=== PATIENT | male | born 1945 | race Caucasian/White ===

== ENCOUNTER 2017-05-03 22:48 | Inpatient (IN) ==
[2017-05-04] MEDS: Furosemide 40 MG TABLET PO SCH ×4 (06:51→21:09)
[2017-05-04] MEDS: Aspirin 325 MG TABLET PO SCH ×2 (06:54→21:06)
--- NOTE | 2017-05-04 07:43 | Internal Med History&Physical ---
Date of Encounter: 05/08/17 Time of Encounter: 07:38 Assessment and Plan (1) COPD exacerbation Current visit: Yes Status: Acute 71/male history of multiple comorbid conditions. Known to have COPD. Admitted with pneumonia in association with the COPD exacerbation. This is a transfer case from [facility] to this hospital. Plan: Admit as inpatient: Patient needs intravenous antibiotics/steroids/close monitoring of the respiratory status/worsening may need ICU transfer. Intravenous antibiotics: Ceftriaxone/azithromycin. Intravenous corticosteroids: Solu-Medrol every 8 hours. Bronchodilators: DuoNeb every 4 hours when necessary. Close monitoring of the respiratory status. We will repeat labs today and tomorrow morning. In view of the multiple comorbid conditions patient needs to be monitored very closely. I have examined this patient in room #23 in the unit 3 [address]. I have explained plan to the patient at length and he verbalized understanding. (2) Diabetes mellitus Current visit: Yes Status: Acute Patient is known to have a type 2 diabetes mellitus. We will start him on subcutaneous insulin order set protocol. We will follow the recommendations from the order Set. Qualifiers: Diabetes mellitus type: type 2 Diabetes mellitus complication status: with unspecified complications Diabetes mellitus termite exterminator insulin use: unspecified alf insulin use status Qualified Code(s): E11.8 - Type 2 diabetes mellitus with unspecified complications (3) Hypertension Current visit: Yes Status: Acute Resume home antihypertensives. Qualifiers: Hypertension type: essential hypertension Qualified Code(s): I10 - Essential (primary) hypertension (4) Morbid obesity Current visit: Yes Status: Acute This patient definitely needs evaluation from bariatric surgery as outpatient (5) DVT prophylaxis Current visit: Yes Status: Acute SCD Medical decision-making: This patient has a moderate to severe risk of worsening in spite of being on appropriate treatment due to the underlying complex medical conditions. Internal Medicine - H&P: HPI Chief complaint: Shortness of breath Admitted From: Hospital to Hospital Transfer Plans for Post Hospital Care: Home History of present illness: PCP: Rosa Camacho Brief past medical history: Diabetes, hypertension, dyslipidemia, chronic kidney disease, morbid obesity, COPD History of present medical illness: Patient was getting upper respiratory symptoms for past 7-10 days. Patient has ongoing cough, shortness of breath and sputum production. Patient noted that there was a change in the color of the sputum. Patient initially tried ljcv-xye-vtcdokt medications from [facility]. Ngbt-fkj-enoiznd medications did not help him for initial 3-4 days and that is why he decided to go to his primary care doctor. He did not get an appointment for his primary care doctor. Patient went to urgent care for further evaluation at [facility]. Urgent care did some basic workup and came to the conclusion that patient has pneumonia. Urgent care provider recommended patient to go to the emergency room at [facility]. At [facility] and was diagnosed that patient has pneumonia. Patient was advised hospitalization at the [facility] but patient refused and decided to come to this hospital for further evaluation. patient denies chest pain, nausea, vomiting, abdominal pain, nausea or dizziness. Reason for transfer: Pneumonia in a patient with multiple comorbid conditions Family history: Noncontributory Of note: Patient claims that he came here last night and he did not get his medication and nobody see him. Past Med Surg Social Fam HX - Past Medical History Medical history: asthma, COPD, diabetes, hypertension, kidney stones, renal disease Psychiatric history: no psych history - Past Surgical History Surgical History: no surgical history - Social History Smoking Status: Never smoker Smokeless Tobacco Status: No Alcohol use: rarely Drug use: none - Family History Father Living Status: Cause of : heart attack Mother Living Status: Hx Family Respiratory Disorders: Yes (COPD) Brother Living Status: Still Living Hx Family Respiratory Disorders: Yes (COPD) Internal Medicine - H&P: Meds Aspirin 325 mg PO HS 05/04/17 [History] Clopidogrel [Plavix] 75 mg PO DAILY 05/04/17 [History] Docusate Sodium [Dok] 100 mg PO DAILY 05/04/17 [History] Duloxetine HCl [Cymbalta] 60 mg PO DAILY 05/04/17 [History] Furosemide [Lasix] 40 mg PO BID 05/04/17 [History] Glipizide/Metformin HCl [Glipizide-Metformin 5-500 mg] 1 tab PO DAILY 05/04/17 [ History] Metoprolol Tartrate [Lopressor] 25 mg PO BID 05/04/17 [History] diazePAM [Valium] 5 mg PO BID 05/04/17 [History] 3 Allergy/AdvReac Type Severity Reaction Status Date / Time No Known Allergies Allergy Unverified 09/30/15 10:01 All Systems PM: A 10-system review of systems was performed and is negative for pertinent findings except as documented above in the HPI. - Constitutional Constitutional: no chills, no fever(s), no night sweats - EENT Eyes: no change in vision, no discharge, no pain, no photophobia Ears: no ear discharge, no ear pain, no tinnitus Nose, mouth and throat: no dysphagia, no nasal discharge, no neck pain, no sore throat - Cardiovascular Cardiovascular ROS IM: no chest pain, no diaphoresis, no dyspnea, no lightheadedness, no palpitations, no syncope - Respiratory Respiratory: cough, dyspnea, wheezing, excessive phlegm production - Gastrointestinal Gastrointestinal: no abdominal pain, no diarrhea, no hematemesis, no hematochezia, no melena, no nausea, no vomiting - Musculoskeletal Musculoskeletal ROS IM: no numbness, no tingling - Integumentary Integumentary IM: no rash, no unusual bruising - Neurological Neurological ROS: no confusion, no convulsions, no focal weakness, no numbness, no tingling, no tremor(s) - Hematologic/Lymphatic Hematologic/Lymphatic: no easy bruising - Constitutional Vitals: Temp Pulse Resp BP Pulse Ox 98.3 F 97 16 124/82 92 05/04/17 06:52 05/04/17 06:52 05/04/17 06:52 05/04/17 06:52 05/04/17 06:52 General appearance: Present: A&O X 3, pleasant, no acute distress, answers questions appropriately - Head Head exam: Present: atraumatic, normocephalic - Eye Eye exam: Present: PERRL, conjuntiva pink, sclera anicteric Pupils: Present: PERRL - Neck Neck exam general surgery: Present: supple, trachea midline. Absent: lymphadenopathy - Respiratory Respiratory exam: Present: accessory muscle use, CTAB, rhonchi, wheezes. Absent : rales - Cardiovascular Cardiovascular exam: Present: RRR, +S1, +S2. Absent: diastolic murmur, gallop, rubs, systolic murmur - GI/Abdominal GI/Abdominal exam: Present: normal bowel sounds, soft, no peritoneal signs. Absent: distended, tenderness - Extremities Exam Extremities exam: Present: warm, radial pulses palpable and symmetrical. Absent : calf tenderness, cyanotic, pedal edema - Neurological Exam Neurological exam: Present: CN II-XII intact, oriented X3, no focal deficits. Absent: pronater drift, facial droop, speech deficit - Skin Skin exam: Present: dry, intact Internal Med - H&P Results - Labs CBC & Chem 7: 05/08/17 01:13 05/08/17 01:13
[2017-05-04] MEDS: diazePAM 5 MG TABLET PO SCH ×2 (08:54→21:09)
[2017-05-04] MEDS: Insulin LISPRO 300 UNITS/3 ML VIAL SQ SCH ×3 (08:54→16:30)
[2017-05-04] MEDS: Azithromycin 500 MG in D5% in Water 250 ML IVPB SCH (08:55)
[2017-05-04 09:32] LABS: Basophils # 0.1 K/mcL (0.0-0.2); Basophils % 0.4 %; Eosinophils # 0.1 K/mcL (0.0-0.6); Eosinophils % 0.6 %; Hematocrit 41.2 % (37.5-50.1); Hemoglobin 13.4 g/dL (12.9-16.9); Immature Granulocytes % 0.9 % (0-4); Lymphocytes # 1.4 K/mcL (0.6-4.6); Lymphocytes % 8.8 %; Mean Corpuscular HGB Conc 32.5 g/dL (31.6-35.5); Mean Corpuscular Hemoglobin 28.5 pg (28.0-33.3); Mean Corpuscular Volume 87.5 fL (83.0-100.0); Monocytes # 1.5 K/mcL (0.0-1.3); Monocytes % 9.2 %; Neutrophils # 12.7 K/mcL (1.6-8.9); Platelet Count 188 K/mcL (140-400); Red Blood Count 4.71 M/mcL (4.19-5.50); Red Cell Distribution Width 12.9 % (11.5-14.5); Segmented Neutrophils % 80.1 %
[2017-05-04 10:05] LABS: Alanine Aminotransferase 9 Units/L (7-52); Alkaline Phosphatase 63 Units/L (34-104); Aspartate Amino Transferase 17 Units/L (13-39); BUN/Creatinine Ratio 11 (6-26); Bilirubin,Total 0.6 mg/dL (0.3-1.0); Blood Urea Nitrogen 15 mg/dL (8-23); Calcium 8.2 mg/dL (8.6-10.3); Carbon Dioxide 23 mEq/L (23-29); Chloride 99 mEq/L (98-107); Globulin 3.1 g/dL (2.4-3.5); Glucose 432 mg/dL (70-105); Osmolality,Calculated 291 (280-300); Potassium 3.3 mEq/L (3.5-5.1); Sodium 131 mEq/L (136-145); Total Protein 6.1 g/dL (6.4-8.9); eGFR For African Americans > 60 (> 60); eGFR For Non-African Americans 53 (> 60)
[2017-05-04] MEDS: cefTRIAXone 1,000 MG in Water for inj. (sterile) 20 ML 10 ML IVPB SCH (10:50)
[2017-05-04] MEDS: Ciprofloxacin OPTH Soln 2.5 ML BOTTLE RIGHT EYE SCH ×2 (12:14→18:12)
[2017-05-04] MEDS: Ciprofloxacin OPTH Soln 2.5 ML BOTTLE LEFT EYE SCH ×2 (12:14→18:12)
[2017-05-04] MEDS: Acetaminophen 325 MG TABLET PO PRN (21:08)
[2017-05-05] MEDS: Ciprofloxacin OPTH Soln 2.5 ML BOTTLE RIGHT EYE SCH ×4 (00:31→17:58)
[2017-05-05] MEDS: Ciprofloxacin OPTH Soln 2.5 ML BOTTLE LEFT EYE SCH ×4 (00:31→17:58)
[2017-05-05 05:14] LABS: BUN/Creatinine Ratio 12 (6-26); Blood Urea Nitrogen 15 mg/dL (8-23); Calcium 8.3 mg/dL (8.6-10.3); Carbon Dioxide 27 mEq/L (23-29); Chloride 97 mEq/L (98-107); Chol/HDL Ratio 5.2 (0-4.9); Cholesterol 99 mg/dL (< 200); Glucose 411 mg/dL (70-105); HDL Cholesterol 19 mg/dL (40-59); LDL Cholesterol,Calculated 52 mg/dL (0-99); Magnesium 1.7 mg/dL (1.6-2.6); Osmolality,Calculated 294 (280-300); Phosphorous 2.5 mg/dL (2.7-4.5); Potassium 3.1 mEq/L (3.5-5.1); Sodium 133 mEq/L (136-145); Triglycerides 138 mg/dL (< 150); eGFR For African Americans > 60 (> 60); eGFR For Non-African Americans 57 (> 60)
[2017-05-05 06:00] LABS: Basophils # 0.1 K/mcL (0.0-0.2); Basophils % 0.5 %; Eosinophils # 0.3 K/mcL (0.0-0.6); Eosinophils % 1.9 %; Hematocrit 41.9 % (37.5-50.1); Hemoglobin 13.4 g/dL (12.9-16.9); Immature Granulocytes % 1.6 % (0-4); Lymphocytes # 1.8 K/mcL (0.6-4.6); Lymphocytes % 12.7 %; Mean Corpuscular Volume 87.7 fL (83.0-100.0); Mean Platelet Volume 12.2 fL (9.4-12.4); Monocytes # 1.2 K/mcL (0.0-1.3); Monocytes % 8.4 %; Neutrophils # 10.6 K/mcL (1.6-8.9); Platelet Count 175 K/mcL (140-400); Red Blood Count 4.78 M/mcL (4.19-5.50); Segmented Neutrophils % 74.9 %
[2017-05-05] MEDS: Insulin LISPRO 300 UNITS/3 ML VIAL SQ SCH ×4 (08:29→22:32)
[2017-05-05] MEDS: cefTRIAXone 1,000 MG in Water for inj. (sterile) 20 ML 10 ML IVPB SCH (08:30)
[2017-05-05] MEDS: Furosemide 40 MG TABLET PO SCH ×3 (08:30→21:55)
[2017-05-05] MEDS: diazePAM 5 MG TABLET PO SCH ×2 (08:31→21:55)
[2017-05-05] MEDS: Azithromycin 500 MG in D5% in Water 250 ML IVPB SCH (08:32)
--- NOTE | 2017-05-05 15:15 | Internal Med Progress Note ---
Date of Encounter: 05/08/17 Time of Encounter: 15:13 - Assessment and plan (1) COPD exacerbation Current Visit: Yes Status: Acute Assessment and plan: COPD exacerbation: Antibiotics: Day 2 Steroids: Day 2 Bronchodilators Patient is clinically improving. We will continue the same management for now. We will recheck respiratory status tomorrow. (2) Diabetes mellitus Current Visit: Yes Status: Acute Assessment and plan: Patient's blood sugar is within acceptable range. We will continue to monitor blood sugar Qualifiers: Diabetes mellitus type: type 2 Diabetes mellitus complication status: with unspecified complications Diabetes mellitus exterminator termite insulin use: unspecified exterminator termite insulin use status Qualified Code(s): E11.8 - Type 2 diabetes mellitus with unspecified complications (3) Hypertension Current Visit: Yes Status: Acute Assessment and plan: Patient blood pressure is within acceptable range. We will continue to monitor blood pressure. Home medications resumed Qualifiers: Hypertension type: essential hypertension Qualified Code(s): I10 - Essential (primary) hypertension (4) Morbid obesity Current Visit: Yes Status: Acute Assessment and plan: Patient definitely needed bariatric surgery evaluation as outpatient. (5) DVT prophylaxis Current Visit: Yes Status: Acute Assessment and plan: Continue DVT Proflex - Subjective Interval history: Patient seen and examined. Next line chart reviewed. Patient is comfortably lying in bed. Patient denies any chest pain, shortness of breath, nausea, vomiting and abdominal pain, dizziness or diarrhea. Patient complains that he was not able to sleep last night. - Constitutional Vitals: Temp Pulse Resp BP Pulse Ox 99.5 F 89 18 129/89 93 05/05/17 14:59 05/05/17 14:59 05/05/17 14:59 05/05/17 14:59 05/05/17 14:59 General appearance: Present: A&O X 3, pleasant, no acute distress, answers questions appropriately - Head Head exam: Present: atraumatic, normocephalic - Eye Eye exam: Present: PERRL, conjuntiva pink, sclera anicteric Pupils: Present: PERRL - Neck Neck exam general surgery: Present: supple, trachea midline. Absent: lymphadenopathy - Respiratory Respiratory exam: Present: CTAB. Absent: accessory muscle use, rales, rhonchi, wheezes - Cardiovascular Cardiovascular exam: Present: RRR, +S1, +S2. Absent: diastolic murmur, gallop, rubs, systolic murmur - GI/Abdominal GI/Abdominal exam: Present: normal bowel sounds, soft, no peritoneal signs. Absent: distended, tenderness - Extremities Exam Extremities exam: Present: warm, radial pulses palpable and symmetrical. Absent : calf tenderness, cyanotic, pedal edema - Neurological Exam Neurological exam: Present: CN II-XII intact, oriented X3, no focal deficits. Absent: pronater drift, facial droop, speech deficit - Skin Skin exam: Present: dry, intact Internal Medicine: Result - Labs CBC & Chem 7: 05/08/17 01:13 05/08/17 01:13 Labs: Short CBC 05/05/17 Range/Units 04:29 WBC 14.1 H (4.3-11.1) K/mcL Hgb 13.4 (12.9-16.9) g/dL Hct 41.9 (37.5-50.1) % Plt Count 175 (140-400) K/mcL Neutrophils # 10.6 H (1.6-8.9) K/mcL BMP 05/05/17 04:29 Sodium 133 L Potassium 3.1 L Chloride 97 L Carbon Dioxide 27 BUN 15 Creatinine 1.26 Glucose 411 H Calcium 8.3 L Cardiac Enzymes 05/04/17 05/04/17 Range/Units 15:24 21:24 Troponin I 0.03 0.03 (< 0.04) ng/mL Consult Discharge Plan - Plan Referrals: Rosa Camacho, NEUROSCIENCE SPECIALIST [Primary Care Provider] -
[2017-05-05] MEDS: Acetaminophen 325 MG TABLET PO PRN (21:55)
[2017-05-05] MEDS: Aspirin 325 MG TABLET PO SCH (21:56)
[2017-05-06] MEDS ORDERED: Ipratropium/Albuterol Neb 3 ML IH SCH
[2017-05-06] MEDS ORDERED: Ipratropium/Albuterol Neb 3 ML IH PRN (00:10)
[2017-05-06] MEDS: Ciprofloxacin OPTH Soln 2.5 ML BOTTLE RIGHT EYE SCH ×4 (00:12→17:05)
[2017-05-06] MEDS: Ciprofloxacin OPTH Soln 2.5 ML BOTTLE LEFT EYE SCH ×4 (00:12→17:05)
[2017-05-06 00:22] LABS: ABG Base Excess 4 mEq/L (-2 to 3); ABG HCO3 28 mEq/L (21-27); ABG Oxygen Saturation 97 % (95-98); ABG PCO2 39 mmHg (35-45); ABG PH 7.46 pH Units (7.32-7.45); ABG PO2 81 mmHg (85-104); ABG TCO2 29 mEq/L (20-26)
[2017-05-06 00:33] LABS: Basophils # 0.1 K/mcL (0.0-0.2); Basophils % 0.7 %; Eosinophils # 0.4 K/mcL (0.0-0.6); Eosinophils % 2.5 %; Hematocrit 41.6 % (37.5-50.1); Hemoglobin 13.8 g/dL (12.9-16.9); Immature Granulocytes % 2.3 % (0-4); Lymphocytes # 2.5 K/mcL (0.6-4.6); Lymphocytes % 15.8 %; Mean Corpuscular HGB Conc 33.2 g/dL (31.6-35.5); Mean Corpuscular Hemoglobin 28.9 pg (28.0-33.3); Mean Corpuscular Volume 87.2 fL (83.0-100.0); Mean Platelet Volume 11.6 fL (9.4-12.4); Monocytes # 1.1 K/mcL (0.0-1.3); Monocytes % 6.9 %; Neutrophils # 11.4 K/mcL (1.6-8.9); Platelet Count 218 K/mcL (140-400); Red Blood Count 4.77 M/mcL (4.19-5.50); Red Cell Distribution Width 12.9 % (11.5-14.5); Segmented Neutrophils % 71.8 %
[2017-05-06 00:49] LABS: BUN/Creatinine Ratio 13 (6-26); Blood Urea Nitrogen 17 mg/dL (8-23); Calcium 8.4 mg/dL (8.6-10.3); Carbon Dioxide 26 mEq/L (23-29); Chloride 99 mEq/L (98-107); Glucose 295 mg/dL (70-105); Osmolality,Calculated 292 (280-300); Potassium 3.1 mEq/L (3.5-5.1); Sodium 135 mEq/L (136-145); eGFR For African Americans > 60 (> 60); eGFR For Non-African Americans 52 (> 60)
[2017-05-06] MEDS: Insulin DETEMIR 100 UNIT/ML X5UNITS SQ SCH ×2 (01:12→20:05)
[2017-05-06 01:26] LABS: Platelet Estimate Normal (Normal); Reactive Lymphocytes Present (Not Present)
[2017-05-06] MEDS: diazePAM 5 MG TABLET PO SCH ×2 (07:55→19:58)
[2017-05-06] MEDS: Furosemide 40 MG TABLET PO SCH ×3 (07:55→19:58)
[2017-05-06] MEDS: cefTRIAXone 1,000 MG in Water for inj. (sterile) 20 ML 10 ML IVPB SCH (07:56)
[2017-05-06] MEDS: Azithromycin 500 MG in D5% in Water 250 ML IVPB SCH (07:56)
[2017-05-06] MEDS: Insulin LISPRO 300 UNITS/3 ML VIAL SQ SCH ×4 (08:15→20:07)
--- NOTE | 2017-05-06 13:03 | Internal Med Progress Note ---
Date of Encounter: 05/06/17 Time of Encounter: 13:01 - Assessment and plan (1) COPD exacerbation Current Visit: Yes Status: Acute Assessment and plan: COPD exacerbation: Antibiotics: Day 2 Steroids: Day 2 Bronchodilators Patient is clinically improving. We will continue the same management for now. We will recheck respiratory status tomorrow. 05/06/2017. Admitted with COPD exacerbation Antibiotics: Ceftriaxone/azithromycin: Day 3 Intravenous Solu-Medrol 40 mg every 8 hours: Third day of administration. Inhaled bronchodilators Patient claims that he is clinically improving. Patient accepted that he has 40% improvement since he arrived to this hospital. Noted that phosphorous was low along with potassium: Phosphorous/potassium replaced Plan: We will continue present management for now. We will recheck labs tomorrow. If there is no clinical improvement then we will in involve pulmonology for further recommendations. (2) Diabetes mellitus Current Visit: Yes Status: Acute Assessment and plan: Patient's blood sugar is within acceptable range. We will continue to monitor blood sugar 05/06/2017. Patient's blood sugar is persistently elevated. Blood sugar level is between 270 and 290 with few outliers. This is likely secondary to the steroid. We will follow the recommendations from the subcutaneous insulin order set. Qualifiers: Diabetes mellitus type: type 2 Diabetes mellitus complication status: with unspecified complications Diabetes mellitus long term care social worker insulin use: unspecified nursing home insulin use status Qualified Code(s): E11.8 - Type 2 diabetes mellitus with unspecified complications (3) Hypertension Current Visit: Yes Status: Acute Assessment and plan: Patient blood pressure is within acceptable range. We will continue to monitor blood pressure. Home medications resumed 05/06/2017. His blood pressure is very well controlled. Qualifiers: Hypertension type: essential hypertension Qualified Code(s): I10 - Essential (primary) hypertension (4) Morbid obesity Current Visit: Yes Status: Acute Assessment and plan: Patient definitely needed bariatric surgery evaluation as outpatient. (5) DVT prophylaxis Current Visit: Yes Status: Acute Assessment and plan: Continue DVT Proflex - Subjective Interval history: Patient seen and examined. chart reviewed. Patient is comfortably lying in bed. Patient denies any chest pain, shortness of breath, nausea, vomiting and abdominal pain, dizziness or diarrhea. Patient complains that he was not able to sleep last night. 05/06/2017. Patient seen and examined. Chart reviewed. Patient was heading towards her restroom when I entered in his room. Noted events from last night. At this point patient is more comfortable. Patient claims that since came to this hospital he feels more than 40% better as compared to the day of admission. Patient denies chest pain, nausea, vomiting, abdominal pain, diarrhea or dizziness - Constitutional Vitals: Temp Pulse Resp BP Pulse Ox 98.0 F 90 18 125/69 93 05/06/17 12:06 05/06/17 12:06 05/06/17 12:06 05/06/17 12:06 05/06/17 12:06 General appearance: Present: A&O X 3, pleasant, no acute distress, answers questions appropriately - Head Head exam: Present: atraumatic, normocephalic - Eye Eye exam: Present: PERRL, conjuntiva pink, sclera anicteric Pupils: Present: PERRL - Neck Neck exam general surgery: Present: supple, trachea midline. Absent: lymphadenopathy - Respiratory Respiratory exam: Present: CTAB. Absent: accessory muscle use, rales, rhonchi, wheezes - Cardiovascular Cardiovascular exam: Present: RRR, +S1, +S2. Absent: diastolic murmur, gallop, rubs, systolic murmur - GI/Abdominal GI/Abdominal exam: Present: normal bowel sounds, soft, no peritoneal signs. Absent: distended, tenderness - Extremities Exam Extremities exam: Present: warm, radial pulses palpable and symmetrical. Absent : calf tenderness, cyanotic, pedal edema - Neurological Exam Neurological exam: Present: CN II-XII intact, oriented X3, no focal deficits. Absent: pronater drift, facial droop, speech deficit - Skin Skin exam: Present: dry, intact Internal Medicine: Result - Labs CBC & Chem 7: 05/06/17 00:26 05/06/17 00:26 Labs: Short CBC 05/06/17 Range/Units 00:26 WBC 15.9 H (4.3-11.1) K/mcL Hgb 13.8 (12.9-16.9) g/dL Hct 41.6 (37.5-50.1) % Plt Count 218 (140-400) K/mcL Neutrophils # 11.4 H (1.6-8.9) K/mcL BMP 05/06/17 00:26 Sodium 135 L Potassium 3.1 L Chloride 99 Carbon Dioxide 26 BUN 17 Creatinine 1.36 H Glucose 295 H Calcium 8.4 L - ABG Interpretation ABG results: ABG ABG pH 7.46 pH Units (7.32-7.45) H 05/06/17 00:16 ABG pCO2 39 mmHg (35-45) 05/06/17 00:16 ABG pO2 81 mmHg (85-104) L 05/06/17 00:16 ABG O2 Saturation 97 % (95-98) 05/06/17 00:16 - Impressions Impressions Chest X-Ray 05/05/17 23:52 IMPRESSION: Negative portable chest. D/ / Baltazar Navarro MD / Baltazar Navarro MD Interpreting Provider: Baltazar Navarro MD - VTE Documentation of Mechanical Device: Intermittent pneumatic compression device Consult Discharge Plan - Plan Referrals: Rosa Camacho CNP [Primary Care Provider] -
[2017-05-06] MEDS: Acetaminophen 325 MG TABLET PO PRN (17:55)
[2017-05-06] MEDS: Aspirin 325 MG TABLET PO SCH (19:58)
[2017-05-06] MEDS ORDERED: Insulin LISPRO 300 UNITS/3 ML VIAL SQ SCH (21:00)
[2017-05-07] MEDS: Ciprofloxacin OPTH Soln 2.5 ML BOTTLE RIGHT EYE SCH ×4 (01:00→16:46)
[2017-05-07] MEDS: Ciprofloxacin OPTH Soln 2.5 ML BOTTLE LEFT EYE SCH ×4 (01:00→16:46)
[2017-05-07 01:26] LABS: Basophils # 0.1 K/mcL (0.0-0.2); Basophils % 0.8 %; Eosinophils # 0.5 K/mcL (0.0-0.6); Eosinophils % 3.2 %; Hematocrit 39.7 % (37.5-50.1); Hemoglobin 12.9 g/dL (12.9-16.9); Immature Granulocytes % 4.2 % (0-4); Lymphocytes # 2.6 K/mcL (0.6-4.6); Lymphocytes % 18.2 %; Mean Corpuscular HGB Conc 32.5 g/dL (31.6-35.5); Mean Corpuscular Hemoglobin 28.4 pg (28.0-33.3); Mean Corpuscular Volume 87.3 fL (83.0-100.0); Mean Platelet Volume 11.4 fL (9.4-12.4); Monocytes % 6.6 %; Neutrophils # 9.7 K/mcL (1.6-8.9); Nucleated Red Blood Cells 0.1 /100 WBC (0); Platelet Count 246 K/mcL (140-400); Red Blood Count 4.55 M/mcL (4.19-5.50)
[2017-05-07 01:46] LABS: Alanine Aminotransferase 13 Units/L (7-52); Albumin 2.7 g/dL (3.5-5.7); Albumin/Globulin Ratio 0.8 (1.1-2.2); Alkaline Phosphatase 62 Units/L (34-104); Aspartate Amino Transferase 20 Units/L (13-39); BUN/Creatinine Ratio 13 (6-26); Bilirubin,Total 0.3 mg/dL (0.3-1.0); Blood Urea Nitrogen 15 mg/dL (8-23); Calcium 8.3 mg/dL (8.6-10.3); Carbon Dioxide 31 mEq/L (23-29); Chloride 100 mEq/L (98-107); Globulin 3.3 g/dL (2.4-3.5); Glucose 251 mg/dL (70-105); Magnesium 1.9 mg/dL (1.6-2.6); Osmolality,Calculated 293 (280-300); Phosphorous 3.9 mg/dL (2.7-4.5); Sodium 137 mEq/L (136-145); eGFR For African Americans > 60 (> 60); eGFR For Non-African Americans > 60 (> 60)
[2017-05-07 03:08] LABS: Large Platelets Present (Not Present); Platelet Estimate Normal (Normal); Reactive Lymphocytes Present (Not Present)
[2017-05-07] MEDS: Insulin LISPRO 300 UNITS/3 ML VIAL SQ SCH ×4 (09:54→19:57)
[2017-05-07] MEDS: diazePAM 5 MG TABLET PO SCH ×2 (09:55→19:59)
[2017-05-07] MEDS: Furosemide 40 MG TABLET PO SCH ×3 (09:55→20:00)
[2017-05-07] MEDS: cefTRIAXone 1,000 MG in Water for inj. (sterile) 20 ML 10 ML IVPB SCH (09:55)
[2017-05-07] MEDS: Azithromycin 500 MG in D5% in Water 250 ML IVPB SCH (09:56)
[2017-05-07] MEDS ORDERED: Potassium Chloride Elixir 20 MEQ/15 ML UDC PO ONE (10:35)
--- NOTE | 2017-05-07 10:42 | Internal Med Progress Note ---
Date of Encounter: 05/07/17 Time of Encounter: 10:42 - Assessment and plan (1) COPD exacerbation Current Visit: Yes Status: Acute Assessment and plan: COPD exacerbation: Antibiotics: Day 2 Steroids: Day 2 Bronchodilators Patient is clinically improving. We will continue the same management for now. We will recheck respiratory status tomorrow. 05/06/2017. Admitted with COPD exacerbation Antibiotics: Ceftriaxone/azithromycin: Day 3 Intravenous Solu-Medrol 40 mg every 8 hours: Third day of administration. Inhaled bronchodilators Patient claims that he is clinically improving. Patient accepted that he has 40% improvement since he arrived to this hospital. Noted that phosphorous was low along with potassium: Phosphorous/potassium replaced Plan: We will continue present management for now. We will recheck labs tomorrow. If there is no clinical improvement then we will in involve pulmonology for further recommendations. 05/07/2017 Admitted with COPD exacerbation We will discontinue azithromycin. Completed 3 days of azithromycin We will continue ceftriaxone. We will continue steroids at this point. As patient is feeling almost 60% better compared to the day of admission I suggested patient that he can go home. Patient preferred to stay one more day in the hospital. Noted that patient's potassium is 3. We will replace the potassium. Plan: We will recheck labs tomorrow more Home tomorrow. (2) Diabetes mellitus Current Visit: Yes Status: Acute Assessment and plan: Patient's blood sugar is within acceptable range. We will continue to monitor blood sugar 05/06/2017. Patient's blood sugar is persistently elevated. Blood sugar level is between 270 and 290 with few outliers. This is likely secondary to the steroid. We will follow the recommendations from the subcutaneous insulin order set. 05/07/2017 Improving blood glucose. Qualifiers: Diabetes mellitus type: type 2 Diabetes mellitus complication status: with unspecified complications Diabetes mellitus long-term insulin use: unspecified long-term insulin use status Qualified Code(s): E11.8 - Type 2 diabetes mellitus with unspecified complications (3) Hypertension Current Visit: Yes Status: Acute Assessment and plan: Patient blood pressure is within acceptable range. We will continue to monitor blood pressure. Home medications resumed 05/06/2017. His blood pressure is very well controlled. Qualifiers: Hypertension type: essential hypertension Qualified Code(s): I10 - Essential (primary) hypertension (4) Morbid obesity Current Visit: Yes Status: Acute Assessment and plan: Patient definitely needed bariatric surgery evaluation as outpatient. (5) DVT prophylaxis Current Visit: Yes Status: Acute Assessment and plan: Continue DVT Proflex - Subjective Interval history: Patient seen and examined. chart reviewed. Patient is comfortably lying in bed. Patient denies any chest pain, shortness of breath, nausea, vomiting and abdominal pain, dizziness or diarrhea. Patient complains that he was not able to sleep last night. 05/06/2017. Patient seen and examined. Chart reviewed. Patient was heading towards her restroom when I entered in his room. Noted events from last night. At this point patient is more comfortable. Patient claims that since came to this hospital he feels more than 40% better as compared to the day of admission. Patient denies chest pain, nausea, vomiting, abdominal pain, diarrhea or dizziness 05/07/2017 Patient seen and examined. Chart reviewed. Patient is comfortably lying in bed. Patient can able to walk in the room 10- 15 steps. Patient denies any chest pain, shortness of breath, nausea, abdominal pain or dizziness. Patient tells me that he feels around 55-60% better as compared to the day of admission. - Constitutional Vitals: Temp Pulse Resp BP Pulse Ox 98.3 F 81 18 128/82 94 05/07/17 03:47 05/07/17 03:47 05/07/17 03:47 05/07/17 03:47 05/07/17 03:47 General appearance: Present: A&O X 3, pleasant, no acute distress, answers questions appropriately - Head Head exam: Present: atraumatic, normocephalic - Eye Eye exam: Present: PERRL, conjuntiva pink, sclera anicteric Pupils: Present: PERRL - Neck Neck exam general surgery: Present: supple, trachea midline. Absent: lymphadenopathy - Respiratory Respiratory exam: Present: CTAB. Absent: accessory muscle use, rales, rhonchi, wheezes - Cardiovascular Cardiovascular exam: Present: RRR, +S1, +S2. Absent: diastolic murmur, gallop, rubs, systolic murmur - GI/Abdominal GI/Abdominal exam: Present: normal bowel sounds, soft, no peritoneal signs. Absent: distended, tenderness - Extremities Exam Extremities exam: Present: warm, radial pulses palpable and symmetrical. Absent : calf tenderness, cyanotic, pedal edema - Neurological Exam Neurological exam: Present: CN II-XII intact, oriented X3, no focal deficits. Absent: pronater drift, facial droop, speech deficit - Skin Skin exam: Present: dry, intact Internal Medicine: Result - Labs CBC & Chem 7: 05/07/17 01:01 05/07/17 01:01 Labs: Short CBC 05/07/17 Range/Units 01:01 WBC 14.4 H (4.3-11.1) K/mcL Hgb 12.9 (12.9-16.9) g/dL Hct 39.7 (37.5-50.1) % Plt Count 246 (140-400) K/mcL Neutrophils # 9.7 H (1.6-8.9) K/mcL BMP 05/07/17 01:01 Sodium 137 Potassium 3.0 L Chloride 100 Carbon Dioxide 31 H BUN 15 Creatinine 1.16 Glucose 251 H Calcium 8.3 L Liver Function 05/07/17 Range/Units 01:01 Total Bilirubin 0.3 (0.3-1.0) mg/dL AST 20 (13-39) Units/L ALT 13 (7-52) Units/L Alkaline Phosphatase 62 (34-104) Units/L Albumin 2.7 L (3.5-5.7) g/dL - ABG Interpretation ABG results: ABG ABG pH 7.46 pH Units (7.32-7.45) H 05/06/17 00:16 ABG pCO2 39 mmHg (35-45) 05/06/17 00:16 ABG pO2 81 mmHg (85-104) L 05/06/17 00:16 ABG O2 Saturation 97 % (95-98) 05/06/17 00:16 - VTE Documentation of Mechanical Device: Intermittent pneumatic compression device Consult Discharge Plan - Plan Referrals: Rosa Camacho, PLATING TANK OPERATOR APPRENTICE [Primary Care Provider] -
--- NOTE | 2017-05-07 16:53 | Event Note ---
Date of Encounter: 05/07/17 Time of Encounter: 16:53 Chart reviewed for quality.
[2017-05-07] MEDS: Aspirin 325 MG TABLET PO SCH (19:59)
[2017-05-07] MEDS: Insulin DETEMIR 100 UNIT/ML X5UNITS SQ SCH (23:06)
[2017-05-08 01:28] LABS: Basophils # 0.1 K/mcL (0.0-0.2); Basophils % 0.8 %; Eosinophils # 0.5 K/mcL (0.0-0.6); Eosinophils % 3.5 %; Hematocrit 40.2 % (37.5-50.1); Immature Granulocytes % 4.5 % (0-4); Lymphocytes # 2.8 K/mcL (0.6-4.6); Mean Corpuscular HGB Conc 32.3 g/dL (31.6-35.5); Mean Corpuscular Hemoglobin 28.4 pg (28.0-33.3); Mean Platelet Volume 11.1 fL (9.4-12.4); Monocytes # 0.9 K/mcL (0.0-1.3); Monocytes % 6.4 %; Neutrophils # 9.5 K/mcL (1.6-8.9); Platelet Count 291 K/mcL (140-400); Red Blood Count 4.57 M/mcL (4.19-5.50); Segmented Neutrophils % 65.8 %
[2017-05-08 01:51] LABS: Large Platelets Present (Not Present); Platelet Estimate Normal (Normal); Reactive Lymphocytes Present (Not Present)
[2017-05-08] MEDS: Ciprofloxacin OPTH Soln 2.5 ML BOTTLE RIGHT EYE SCH ×3 (01:53→12:19)
[2017-05-08] MEDS: Ciprofloxacin OPTH Soln 2.5 ML BOTTLE LEFT EYE SCH ×3 (01:53→12:19)
[2017-05-08 01:57] LABS: Alanine Aminotransferase 13 Units/L (7-52); Albumin 2.7 g/dL (3.5-5.7); Albumin/Globulin Ratio 0.8 (1.1-2.2); Alkaline Phosphatase 62 Units/L (34-104); Aspartate Amino Transferase 16 Units/L (13-39); BUN/Creatinine Ratio 12 (6-26); Bilirubin,Total 0.2 mg/dL (0.3-1.0); Blood Urea Nitrogen 15 mg/dL (8-23); Calcium 8.2 mg/dL (8.6-10.3); Carbon Dioxide 32 mEq/L (23-29); Chloride 99 mEq/L (98-107); Globulin 3.3 g/dL (2.4-3.5); Glucose 360 mg/dL (70-105); Osmolality,Calculated 297 (280-300); Phosphorous 3.6 mg/dL (2.7-4.5); Potassium 3.4 mEq/L (3.5-5.1); Sodium 136 mEq/L (136-145); eGFR For African Americans > 60 (> 60); eGFR For Non-African Americans 58 (> 60)
--- NOTE | 2017-05-08 08:52 | Discharge Summary ---
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: unspecified retirement village manager insulin use status Qualified Code(s): E11.8 - Type 2 diabetes mellitus with unspecified complications (3) Hypertension Priority: Secondary Status: Acute Qualifiers: Hypertension type: essential hypertension Qualified Code(s): I10 - Essential (primary) hypertension (4) Morbid obesity Priority: Secondary Status: Acute (5) DVT prophylaxis Priority: Secondary Status: Acute - Discharge Medications Prescriptions: Amoxicillin/Clavulanate [Augmentin] 875 mg PO BIDWM #4 tablet predniSONE [PredniSONE] 40 mg PO DAILY #2 tablet Home Medications: Aspirin 325 mg PO HS 05/04/17 [History] Clopidogrel [Plavix] 75 mg PO DAILY 05/04/17 [History] Docusate Sodium [Dok] 100 mg PO DAILY 05/04/17 [History] Duloxetine HCl [Cymbalta] 60 mg PO DAILY 05/04/17 [History] Furosemide [Lasix] 40 mg PO BID 05/04/17 [History] Glipizide/Metformin HCl [Glipizide-Metformin 5-500 mg] 1 tab PO DAILY 05/04/17 [ History] Metoprolol Tartrate [Lopressor] 25 mg PO BID 05/04/17 [History] diazePAM [Valium] 5 mg PO BID 05/04/17 [History] Amoxicillin/Clavulanate [Augmentin] 875 mg PO BIDWM #4 tablet 05/08/17 [Rx] predniSONE [PredniSONE] 40 mg PO DAILY #2 tablet 05/08/17 [Rx] Allergies/Adverse Reactions: 3 Allergy/AdvReac Type Severity Reaction Status Date / Time No Known Allergies Allergy Unverified 09/30/15 10:01 Date of admission: 05/04/17 00:25 Primary care physician: Rosa Camacho CNP Discharging clinician: Ra Gan - Patient Status Disposition: Home, Self-Care Condition: Good Functional capacity at discharge: independent ambulation - Discharge Instructions Follow Up With: Rosa Camacho CNP [Primary Care Provider] - - Diet and Activity Activity: increase activity as tolerated Diet: diabetic diet Interval History: PCP: Rosa Camacho Brief past medical history: Diabetes, hypertension, dyslipidemia, chronic kidney disease, morbid obesity, COPD History of present medical illness: Patient was getting upper respiratory symptoms for past 7-10 days. Patient has ongoing cough, shortness of breath and sputum production. Patient noted that there was a change in the color of the sputum. Patient initially tried pufe-zpe-hwuguxy medications from [facility]. Ylqj-ufe-owqhvma medications did not help him for initial 3-4 days and that is why he decided to go to his primary care doctor. He did not get an appointment for his primary care doctor. Patient went to urgent care for further evaluation at [facility]. Urgent care did some basic workup and came to the conclusion that patient has pneumonia. Urgent care provider recommended patient to go to the emergency room at [facility]. At [facility] and was diagnosed that patient has pneumonia. Patient was advised hospitalization at the [facility] but patient refused and decided to come to this hospital for further evaluation. patient denies chest pain, nausea, vomiting, abdominal pain, nausea or dizziness. Reason for transfer: Pneumonia in a patient with multiple comorbid conditions Hospital course: Hospital course: Patient was hospitalized. Patient received ceftriaxone/ azithromycin. We continued azithromycin for 3 days. Patient received intravenous Solu-Medrol 40 mg every 8 hour. Patient tolerated bronchodilators extremely well with this treatment patient's COPD exacerbation was under control. Patient started feeling better. Patient claims that today he feels 80 % better than what he was on arrival. Patient is keen to go home today as this is a [place] Day. Plan: Home today. Follow-up with PCP in one week. Augmentin 875 mg twice a day for 2 days. Prednisone 40 mg once a day for 2 days. At the time of discharge all above was explained to the patient. At the time of discharge patient does not have any questions, concerns, updates or recommendations. - Time Spent with Patient Total time spent providing and/or coordinating discharge services: - Constitutional Vitals: Temp Pulse Resp BP Pulse Ox 98.4 F 91 16 114/73 95 05/08/17 07:07 05/08/17 07:07 05/08/17 07:07 05/08/17 07:07 05/08/17 07:07 General appearance: Present: A&O X 3, pleasant, no acute distress, answers questions appropriately - Head Head exam: Present: atraumatic, normocephalic - Eye Eye exam: Present: PERRL, conjuntiva pink, sclera anicteric Pupils: Present: PERRL - Neck Neck exam general surgery: Present: supple, trachea midline. Absent: lymphadenopathy - Respiratory Respiratory exam: Present: CTAB. Absent: accessory muscle use, rales, rhonchi, wheezes - Cardiovascular Cardiovascular exam: Present: RRR, +S1, +S2. Absent: diastolic murmur, gallop, rubs, systolic murmur - GI/Abdominal GI/Abdominal exam: Present: normal bowel sounds, soft, no peritoneal signs. Absent: distended, tenderness - Extremities Exam Extremities exam: Present: warm, radial pulses palpable and symmetrical. Absent : calf tenderness, cyanotic, pedal edema - Neurological Exam Neurological exam: Present: CN II-XII intact, oriented X3, no focal deficits. Absent: pronater drift, facial droop, speech deficit - Skin Skin exam: Present: dry, intact - VTE Documentation of Mechanical Device: Intermittent pneumatic compression device
[2017-05-08] MEDS: Furosemide 40 MG TABLET PO SCH (10:20)
[2017-05-08] MEDS: diazePAM 5 MG TABLET PO SCH (10:22)
[2017-05-08] MEDS: Insulin LISPRO 300 UNITS/3 ML VIAL SQ SCH ×2 (10:22→12:18)
[2017-05-08] MEDS: Azithromycin 500 MG in D5% in Water 250 ML IVPB SCH (10:23)
[2017-05-08] MEDS: cefTRIAXone 1,000 MG in Water for inj. (sterile) 20 ML 10 ML IVPB SCH (10:24)
[2017-05-08 11:04] VITALS: BP 118/76
== END 2017-05-08 13:35 | disposition home or self-care (01) | DRG 190 ==
LOC: 3NENU
PROVIDERS: ADMIT Student in an Organized Health Care Education/Training Program; ATTEND Family Medicine